=== PATIENT | male | born 1990 | race Caucasian/White ===

== ENCOUNTER 2021-04-28 10:46 | Observation (INO) | payer BC, OTHER ==
--- NOTE | 2021-04-28 11:08 | ED ---
General Adult HPI - General Chief complaint: Urogenital Stated complaint: Testicle Pain Time Seen by Provider: 04/28/21 10:50 Source: patient, EMS Mode of arrival: EMS Limitations: no limitations - History of Present Illness Initial comments: Patient is a 30-year-old previously healthy male presents to the emergency department from [facility]. He reports that he began having left-sided testicular pain on while he was in the shower. He has been taking Aleve and icing the area without improvement in his pain. This morning he went into [facility] where they completed an ultrasound which demonstrated diminished absent blood flow to the left testicle consistent with torsion. As he did have 6 days with the symptoms and began showing heterogenicity they were concerned for significant ischemia or necrosis. [facility] did call for transfer after attempting reduction. I did speak with Dr. Frost prior to patient's arrival who was aware that the patient would be coming over. Patient does arrive and continues to have left sided testicular pain. He has received 2 mg of morphine 2. Last oral intake was around 6:30 this morning when the patient drink some vitamin water. No report of any fevers. Urinalysis was negative for any infection. No other alleviating, precipitating or modifying factors - Related Data Previous Rx's Medication Instructions Recorded Ketorolac [Toradol] 10 mg PO Q6HR PRN #10 tab 04/29/21 Allergies Allergy/AdvReac Type Severity Reaction Status Date / Time No Known Allergies Allergy Verified 04/28/21 11:46 Review of Systems ROS Statement: Those systems with pertinent positive or pertinent negative responses have been documented in the HPI. ROS Other: All systems not noted in ROS Statement are negative. Past Medical History - Past Family History Father Family Medical History: Cancer Additional Family Medical History / Comment(s): colon cancer General Exam Limitations: no limitations General appearance: alert, in no apparent distress Head exam: Present: atraumatic, normocephalic, normal inspection Eye exam: Present: normal appearance, PERRL, EOMI. Absent: scleral icterus, conjunctival injection, periorbital swelling ENT exam: Present: normal exam, mucous membranes moist Neck exam: Present: normal inspection. Absent: tenderness, meningismus, lymphadenopathy Respiratory exam: Present: normal lung sounds bilaterally. Absent: respiratory distress, wheezes, rales, rhonchi, stridor Cardiovascular Exam: Present: regular rate, normal rhythm, normal heart sounds. Absent: systolic murmur, diastolic murmur, rubs, gallop, clicks GI/Abdominal exam: Present: soft, normal bowel sounds. Absent: distended, tenderness, guarding, rebound, rigid exam: Present: testicular tenderness, scrotal swelling, other (left testicle enlarged, indurated, erythematous. cremaster reflex absent on the left. ) Extremities exam: Present: normal inspection, full ROM, normal capillary refill. Absent: tenderness, pedal edema, joint swelling, calf tenderness Back exam: Present: normal inspection Neurological exam: Present: alert, oriented X3, CN II-XII intact Psychiatric exam: Present: normal affect, normal mood Skin exam: Present: warm, dry, intact, normal color. Absent: rash Course Vital Signs 04/28/21 04/28/21 10:49 14:00 Temperature 98.4 F 100.9 F H Pulse Rate 86 71 Respiratory 18 16 Rate Blood Pressure 133/89 116/74 O2 Sat by Pulse 97 98 Oximetry - Reevaluation(s) Reevaluation #1: Spoke with Dr. Frost, aware patient is here and condition of testicular torsion. Patient to remain NPO for surgery. 04/28/21 11:07 EKG Findings - EKG Comments: EKG Findings:: EKG demonstrates sinus rhythm with a rate of 65. OK interval 120. QRS 84. QTC 391. No acute ST segment elevations or depressions concerning for ischemic changes Medical Decision Making - Medical Decision Making Upon arrival patient was placed into room 20. I did speak with Dr. Frost. Patient is nothing by mouth for surgery. Pain medications and antibiotics were ordered. He is currently awaiting transfer to the OR. Manual detorsion was not attempted by myself as patient reports it was attempted by outside hospital and was painful/failed. - Lab Data Result diagrams: 04/28/21 11:19 04/28/21 11:19 Disposition Clinical Impression: Testicular torsion, Testicular pain, left Disposition: ADMITTED IP TO THIS [facility] Condition: Good Is patient prescribed a controlled substance at d/c from ED?: No Decision to Admit Reason: Admit from EC Decision Date: 04/28/21 Decision Time: 11:11
[2021-04-28] MEDS ORDERED: NALOXONE 0.4 MG/ML 1 ML VIAL IV PRN (11:11)
[2021-04-28] MEDS ORDERED: ONDANSETRON 4 MG/2 ML VIAL IVP PRN (11:11)
[2021-04-28 11:28] LABS: Basophils % (A) 0 %; Eosinophils # (A) 0.1 k/uL (0-0.7); Eosinophils % (A) 1 %; HCT 46.1 % (39.0-53.0); Lymphocytes # (A) 1.4 k/uL (1.0-4.8); Lymphocytes % (A) 11 %; MCH 30.6 pg (25.0-35.0); MCHC 34.8 g/dL (31.0-37.0); Mean Platelet Volume 7.3; Monocytes # (A) 0.5 k/uL (0-1.0); Monocytes % (A) 4 %; Neutrophils # (A) 10.5 k/uL (1.3-7.7); Neutrophils % (A) 82 %; Platelet Count 204 k/uL (150-450); RBC 5.24 m/uL (4.30-5.90); RDW 13.5 % (11.5-15.5); WBC 12.7 k/uL (3.8-10.6)
[2021-04-28 11:51] LABS: ALT 21 U/L (4-49); AST 23 U/L (17-59); African American GFR (CKD) >90 (>60 ml/min/1.73 sqM); Albumin 4.2 g/dL (3.5-5.0); Alkaline Phosphatase 106 U/L (38-126); Anion Gap 10 mmol/L; Blood Urea Nitrogen 11 mg/dL (9-20); Carbon Dioxide 22 mmol/L (22-30); Chloride 105 mmol/L (98-107); Glucose 82 mg/dL (74-99); Non-African American GFR(CKD) >90 (>60 ml/min/1.73 sqM); Potassium 4.2 mmol/L (3.5-5.1); Sodium 137 mmol/L (137-145); Total Bilirubin 0.7 mg/dL (0.2-1.3)
[2021-04-28] MEDS: SODIUM CHLORIDE 0.9% 1,000 ML IV SCH ×2 (12:04→20:15)
[2021-04-28] MEDS: MORPHINE SULFATE 4 MG/ML SYRINGE IV PRN ×2 (14:09→20:09)
[2021-04-28] MEDS ORDERED: LEVOFLOXACIN 750MG-D5W PMX 750 MG in DEXTROSE/WATER 1 150ML.BAG IVPB STA (14:37)
[2021-04-28] MEDS ORDERED: ACETAMINOPHEN TAB 325 MG TAB PO STA (15:25)
--- NOTE | 2021-04-28 15:37 | P.GSHP ---
History of Present Illness H&P Date: 04/28/21 Chief Complaint: Left testicular pain and swelling The patient is a 30-year-old white male who experienced left testicular pain and swelling beginning on 04/22/2021. His symptoms have gradually progressed. He was evaluated earlier today at an outside hospital. Scrotal ultrasound showed minimal to absent blood flow to the left testicle, and the testicle was noted to be enlarged and heterogenous. - Constitutional Constitutional: Denies chills, Denies fever - Gastrointestinal Gastrointestinal: Reports nausea, Denies vomiting - Genitourinary (Male) Genitourinary: Denies dysuria, Denies hematuria Medications and Allergies Home Medications Medication Instructions Recorded Confirmed Type No Known Home Medications 04/28/21 04/28/21 History Allergies Allergy/AdvReac Type Severity Reaction Status Date / Time No Known Allergies Allergy Verified 04/28/21 11:46 Surgical - Exam Vital Signs Temp Pulse Resp BP Pulse Ox 98.4 F 86 18 133/89 97 04/28/21 10:49 04/28/21 10:49 04/28/21 10:49 04/28/21 10:49 04/28/21 10:49 - General well developed, well nourished, no distress - Respiratory normal respiratory effort - Abdomen Abdomen: soft, non tender, no guarding, no rigid, no rebound - Genitourinary Normal phallus, normal urethral meatus. The right testicle is palpably normal. The left testicle is enlarged and extremely tender. Left scrotal edema is noted. - Psychiatric oriented to time, oriented to person, oriented to place, speech is normal, memory intact Results - Labs 04/28/21 11:19 04/28/21 11:19 Abnormal Lab Results - Last 24 Hours (Table) 04/28/21 Range/Units 11:19 WBC 12.7 H (3.8-10.6) k/uL Neutrophils # 10.5 H (1.3-7.7) k/uL Diabetes panel 04/28/21 Range/Units 11:19 Sodium 137 (137-145) mmol/L Potassium 4.2 (3.5-5.1) mmol/L Chloride 105 (98-107) mmol/L Carbon Dioxide 22 (22-30) mmol/L BUN 11 (9-20) mg/dL Creatinine 0.96 (0.66-1.25) mg/dL Glucose 82 (74-99) mg/dL Calcium 9.0 (8.4-10.2) mg/dL AST 23 (17-59) U/L ALT 21 (4-49) U/L Alkaline Phosphatase 106 (38-126) U/L Total Protein 7.0 (6.3-8.2) g/dL Albumin 4.2 (3.5-5.0) g/dL Calcium panel 04/28/21 Range/Units 11:19 Calcium 9.0 (8.4-10.2) mg/dL Albumin 4.2 (3.5-5.0) g/dL Pituitary panel 04/28/21 Range/Units 11:19 Sodium 137 (137-145) mmol/L Potassium 4.2 (3.5-5.1) mmol/L Chloride 105 (98-107) mmol/L Carbon Dioxide 22 (22-30) mmol/L BUN 11 (9-20) mg/dL Creatinine 0.96 (0.66-1.25) mg/dL Glucose 82 (74-99) mg/dL Calcium 9.0 (8.4-10.2) mg/dL Adrenal panel 04/28/21 Range/Units 11:19 Sodium 137 (137-145) mmol/L Potassium 4.2 (3.5-5.1) mmol/L Chloride 105 (98-107) mmol/L Carbon Dioxide 22 (22-30) mmol/L BUN 11 (9-20) mg/dL Creatinine 0.96 (0.66-1.25) mg/dL Glucose 82 (74-99) mg/dL Calcium 9.0 (8.4-10.2) mg/dL Total Bilirubin 0.7 (0.2-1.3) mg/dL AST 23 (17-59) U/L ALT 21 (4-49) U/L Alkaline Phosphatase 106 (38-126) U/L Total Protein 7.0 (6.3-8.2) g/dL Albumin 4.2 (3.5-5.0) g/dL Assessment and Plan (1) Testicular torsion Current Visit: Yes Status: Acute Code(s): N44.00 - TORSION OF TESTIS, UNSPECIFIED SNOMED Code(s): 71292118 Plan: I had a lengthy discussion with the patient and his mother. I explained to them that the history, physical examination findings, and ultrasound are all consistent with missed left testicular torsion. I have recommended that he undergo left scrotal exploration. I expect that the testicle is necrotic, in which case an orchiectomy will be performed. If the testicle appears viable and orchiopexy will be performed. If indeed he is confirmed to have left testicular torsion, a right scrotal orchiopexy will be performed to prevent future right testicular torsion. The rationale for this approach has been reviewed in detail, along with potential risks which include anesthesia, bleeding, infection, and testicular injury.
[2021-04-28 16:17] LABS: Appearance,Urine Clear (Clear); Bilirubin,Urine Negative (Negative); Blood,Urine Negative (Negative); Color,Urine Yellow; Glucose,Urine (UA) Negative (Negative); Ketones,Urine Negative (Negative); Leukocyte Esterase,Urine Negative (Negative); Nitrite,Urine Negative (Negative); Protein,Urine Trace (Negative); Specific Gravity,Urine 1.028 (1.001-1.035)
[2021-04-28] MEDS ORDERED: HYDROmorphone (PF) 1 MG/ML ONE (22:00)
[2021-04-28] MEDS ORDERED: GLYCOPYRROLATE 0.2 MG/ML 2 ML VIAL ONE (22:00)
[2021-04-28] MEDS ORDERED: LIDOCAINE 1% INJ 10MG/ML (20 ML MDV) ONE (22:00)
[2021-04-28] MEDS ORDERED: fentaNYL (PF) 50 MCG/ML 2 ML AMP ONE (22:00)
[2021-04-28] MEDS ORDERED: PROPOFOL 10 MG/ML 20 ML VIAL IV ONE (22:00)
[2021-04-28] MEDS ORDERED: MIDAZOLAM 2 MG/2 ML VIAL ONE (22:00)
[2021-04-28] MEDS ORDERED: SODIUM CHLORIDE 0.9% 1,000 ML IV ONE ×2 (22:05→23:54)
[2021-04-28] MEDS ORDERED: SODIUM CHLORIDE 0.9% 50 ML with ceFAZolin 2,000 MG IV ONE ×2 (22:18)
[2021-04-28] MEDS ORDERED: HYDROcodone/APAP 5-325MG 1 EACH TAB PO PRN ×2 (23:24)
--- NOTE | 2021-04-28 23:24 | P.OP ---
Date of Procedure: 04/28/21 Preoperative Diagnosis: Left testicular torsion Postoperative Diagnosis: Same Procedure(s) Performed: Left scrotal exploration, left orchiectomy, right scrotal orchiopexy Anesthesia: ASHOKA Surgeon: Wander Frost Estimated Blood Loss (ml): 20 IV fluids (ml): 900 Pathology: other (Left testicle) Condition: stable Disposition: PACU Indications for Procedure: The patient is a 30-year-old white male who experienced left testicular pain and swelling beginning on 04/22/2021. His symptoms have gradually progressed. He was evaluated earlier today at an outside hospital. Scrotal ultrasound showed minimal to absent blood flow to the left testicle, and the testicle was noted to be enlarged and heterogenous. Operative Findings: Necrotic left testicle. Description of Procedure: The patient was taken to the operating room and placed in supine position. The external genitalia was prepped and draped sterilely. The scalpel was used to make a transverse left anterior scrotal incision. The subcutaneous tissues were noted to be markedly edematous. The left hemiscrotum was entered. The testicle was mobilized and delivered through the incision. The tunica vaginalis was incised, exposing the testicle which was obviously necrotic. Examination of the spermatic cord showed evidence of torsion. The spermatic cord was mobilized to the scrotal neck. A 2-0 Vicryl suture ligature was used to ligate the spermatic cord. A second ligature was placed prior to amputating the testicle. Meticulous attention was paid to eradicate any bleeding from the left hemiscrotum. Once hemostasis was attained, dartos fascia was closed using 3-0 Vicryl suture in a running fashion. The skin was closed using 3-0 chromic suture in a running fashion. A mirror image incision was made on the right anterior hemiscrotum. The right testicle was delivered through the incision and was morphologically normal. The appendix testis was excised. 3-0 silk sutures were placed through the tunica albuginea on the medial, lateral, and inferior surfaces of the testicle, with care taken to avoid any vessels. The testicle was returned to the right hemiscrotum, and the silk sutures were placed through the scrotal wall in their corresponding location to prevent future testicular torsion. Hemostasis was excellent. The dartos fascia was closed using 3-0 Vicryl suture in a running fashion. The skin was closed using 3-0 chromic suture in a running fashion. All sponge and needle counts were correct. Surgical fluffs were placed over the scrotum, followed by scrotal support. The patient tolerated the procedure well was taken to the recovery room in stable condition.
[2021-04-28] MEDS ORDERED: HYDROmorphone 0.5 MG/0.5 ML SYRINGE IVP ONE ×2 (23:27→23:36)
[2021-04-28] MEDS ORDERED: KETOROLAC 15 MG/ML 1 ML VIAL IVP ONE (23:27)
[2021-04-29] MEDS: KETOROLAC 15 MG/ML 1 ML VIAL IVP SCH ×3 (00:50→11:30)
[2021-04-29] MEDS: SODIUM CHLORIDE 0.9% 1,000 ML IV SCH ×2 (03:42→07:54)
[2021-04-29 07:33] VITALS: BP 99/60; PULSE 65; RESP 18; TEMP 98.4
--- NOTE | 2021-04-29 09:02 | P.DS ---
Providers Date of admission: 04/28/21 11:11 Expected date of discharge: 04/29/21 Attending physician: Wander Frost Primary care physician: Stated None - Discharge Diagnosis(es) (1) Testicular torsion Current Visit: Yes Status: Acute Hospital Course: The patient was admitted 04/28/2021 with left testicular pain and swelling, with symptomatic onset 04/22/2021. Ultrasound showed minimal to no flow to the left testicle, and the left testicle was noted to be enlarged and heterogenous. He underwent surgical exploration, revealing a necrotic left testicle which was removed. A right orchiopexy was performed. He remained afebrile with stable vital signs following the procedure. On the first postoperative day, he was voiding without difficulty and was reasonably comfortable. Mild left scrotal swelling was noted, as expected. Slight oozing from the left scrotal incision skin edge was also noted. Procedures: Left scrotal exploration, left orchiectomy, right scrotal orchiopexy on 04/28/2021. Patient Condition at Discharge: Good Plan - Discharge Summary Discharge Rx Participant: Yes New Discharge Prescriptions: New Ketorolac [Toradol] 10 mg PO Q6HR PRN #10 tab PRN Reason: Pain Discharge Medication List Ketorolac [Toradol] 10 mg PO Q6HR PRN #10 tab 04/29/21 [Rx] Follow up Appointment(s)/Referral(s): None,Stated [Primary Care Provider] - 1-2 days Wander Frost MD [STAFF PHYSICIAN] - 1 Week Activity/Diet/Wound Care/Special Instructions: May shower on 04/30/2021. No lifting or strenuous activity. Discharge Disposition: HOME SELF-CARE
== END 2021-04-29 11:26 | disposition home or self-care (01) ==
LOC: EC 10:46 → 6NMEDSUR 11:11
PROVIDERS: ADMIT Urology; ATTEND Urology
DX: N44.00 Torsion of testis, unspecified (principal); N50.89 Other specified disorders of the male genital organs; Z80.0 Family history of malignant neoplasm of digestive organs; F17.210 Nicotine dependence, cigarettes, uncomplicated
CPT/HCPCS: 99285; 36415; 93005; 86900; 86901; 80053; 85025; 86850; 81003; 87040; 88302; 54520; 54640; G0378 ×2; J2250; J2270; J2405; J0690; J2001; J3010; J1170 ×2; J1956; J1885 ×2; J2704